=== PATIENT | female | born 1995 | race Caucasian/White ===

== ENCOUNTER 2018-11-04 21:31 | Emergency (ER) | payer SELFPAY ==
[~2018-11-04] VITALS: Ht 170.2 cm; Wt 99.8 kg
[2018-11-04 21:43] VITALS: BP 138/90
--- NOTE | 2018-11-04 21:46 | NUR ---
to lobby a/w bed, hailey parikh noted
--- NOTE | 2018-11-04 21:51 | NUR ---
AMBULATED TO ER BED 1
--- NOTE | 2018-11-04 22:00 | NUR ---
23/F PRESENTS TO ED, C/O INTERMITTENT SUPRAPUBIC/LOWER ABD PAIN AND CONSTANT LOWER BACK PAIN, X4 DAYS. REPORTS RESOLVED DIARRHEA. DENIES FEVER, N/V, CONSTIPATION OR DYSURIA. PT STATED THAT SHE HAD A +URINE PREG, AND WAS -URINE PREG FEW DAYS AGO. DENIES VAG BLEED. AOX4, GCS 15, RR EVEN AND UNLABORED. HX CHOLECYSTECTOMY
[2018-11-04] MEDS ORDERED: KETOROLAC 60 MG/2 ML VIAL IM ONE (23:25)
[2018-11-05 00:21] VITALS: BP 143/71
--- NOTE | 2018-11-05 00:21 | NUR ---
DISCHARGE PAPERS GIVEN. PT STATES 5/10 PAIN BUT TOLLERABLE. CMS INTACT X4 EXTREMETIES. VSS. PT VERBALIZED UNDERSTANDING OF DC INSTRUCTIONS. ACCOMPANIED BY SISTER UPON ED DC.
== END 2018-11-05 00:21 | disposition home or self-care (01) ==
LOC: MED 21:31
DX: R10.32 Left lower quadrant pain (principal); M54.9 Dorsalgia, unspecified; Z90.49 Acquired absence of other specified parts of digestive tract
CPT/HCPCS: 81002; 81025; 96372; 99283; J1885